=== PATIENT | male | born 1950 | race Caucasian/White ===

== ENCOUNTER 2019-01-25 12:52 | Outpatient (CLI) | payer MEDICARE, BC ==
--- NOTE | 2019-01-25 13:20 | RAD ---
EXAM: 4 views of the lumbosacral spine HISTORY: Low back pain with right lower cervical radiculopathy COMPARISON: None FINDINGS: 4 views of the lumbosacral spine shows normal height of the vertebral bodies and interverte bral discs without fracture. There is grade 1 anterolisthesis of L5 on S1. Intervertebral discs are narrowed and small to moderate osteophytes are seen throughout the lumbar spine. Moderate posterior f acet arthrosis is seen in the lower lumbosacral spine. There are questionable bilateral L5 pars defects. Alignment is unchanged with flexion and extension. The sacroiliac joints are unremarkable. Calcifications projecting over the right upper quadrant of th e abdomen may represent gallstones. IMPRESSION: Degenerative changes of the lumbar spine with unchanged alignment with bending
--- NOTE | 2019-01-25 14:09 | MRI ---
MR the lumbar spine without contrast INDICATION: Low back pain and right leg pain COMPARISON: Lumbar spinal radiographs dated January 25, 2019 TECHNIQUE: Multiplanar multisequence MR images were obtained of lumbar spine without IV contrast. FINDINGS: Bone marrow: Bone marrow signal intensity appears within normal limits. Distal spinal cord and conus: Normal. The conus seen to terminate at L1. Visualized retroperitoneum and paraspinal soft tissues: Normal. Vertebral levels: L5-S1: There are bilateral pars defects at L5. There is grade 1 anterolisthesis of L5 on S1. There is a broad-based pseudobulge with loss of disc space height inducing mild to moderate bilateral neural foraminal narrowing.. L4-5: There is a broad-based disc osteophyte complex with facet hypertrophy and loss of disc space he ight inducing mild bilateral neural foraminal narrowing, left greater than right. L3-4: There is a broad-based disc bulge with a superimposed caudad projecting left paracentral disc e xtrusion. The extrusion measures 1 cm in its greatest craniocaudad dimension. The extrusion is causing mild effacement of the left ventrolateral subarachnoid space but does cause moderate narrowin g of the left lateral recess with potential for impingement of the traversing left L4 nerve root. Broad-based bulge induces mild bilateral neural foraminal narrowing. L2-3: There is a broad-based bulge with facet hypertrophy inducing mild to moderate right and mild le ft neural foraminal narrowing. There is mild central canal narrowing. L1-L2: There is a broad-based bulge causing mild central canal narrowing with mild bilateral neural f oraminal narrowing T12-L1: No appreciable central canal or neuroforaminal narrowing. IMPRESSION: 1. Moderate to severe spondylosis of the lumbar spine. 2. Bilateral pars defects at L5 with grade 1 anterolisthesis. There is [id number] bilateral meg ral foraminal narrowing at L5-S1. 3. Left paracentral inferior projecting extrusion causing moderate narrowing of the left lateral rece ss with potential for impingement of the traversing left L4 nerve root. 4. Mild central canal narrowing at L2-3 and L1-L2 due to broad-based disc bulges. There is bilateral moderate right and mild left neural foraminal narrowing at L2-3. There is mild bilateral neural foraminal narrowing at L1-2.
== END 2019-01-25 12:53 | disposition home or self-care (01) ==
LOC: TBSIIMAG 12:52
PROVIDERS: ATTEND Physician Assistant Surgical
DX: M79.604 Pain in right leg (principal); M54.5 Low back pain; M25.561 Pain in right knee; M47.816 Spondylosis without myelopathy or radiculopathy, lumbar region; M43.16 Spondylolisthesis, lumbar region; M48.07 Spinal stenosis, lumbosacral region; M51.26 Other intervertebral disc displacement, lumbar region; M48.061 Spinal stenosis, lumbar region without neurogenic claudication; M51.9 Unspecified thoracic, thoracolumbar and lumbosacral intervertebral disc disorder
CPT/HCPCS: 72110; 72148

== ENCOUNTER 2019-02-22 12:21 | Outpatient (CLI) | payer MEDICARE, BC ==
--- NOTE | 2019-02-22 13:43 | CT ---
CT Lumbar Spine WO Con History: Lumbar radiculopathy. Low back pain Comparison: MRI lumbar spine January 25, 2019 Findings: Aortic contour is nonaneurysmal. No retroperitoneal periaortic adenopathy. Moderate diverticular disease sigmoid colon without active current inflammation. Level by level interrogation was performed on last month's MRI lumbar. Multilevel posterior disc osteophyte complexes with neural foraminal narrowing as described on the re cent MRI examination. Bilateral L5 pars interarticularis defects with erosion of the posterior disc along with 9 mm anterolisthesis. There is sclerosis on either side of the pars defect. There is no acute fracture of the lumbar spine. Spinous processes are intact. Mild narrowing of the SI joints with ankylosis of the right anterior SI joint. Impression: 1. Similar appearance of the advanced spondylosis lumbar spine from the MRI January 25, 2019. 2. Unchanged bilateral pars interarticularis defects at L5 with 9 mm anterolisthesis. 3. Advanced narrowing of the interspinous space from L3-L5 with cortical sclerosis and subcortical cy st formation.
== END 2019-02-22 12:22 | disposition home or self-care (01) ==
LOC: BICCT 12:21
PROVIDERS: ATTEND Surgery
DX: M47.26 Other spondylosis with radiculopathy, lumbar region (principal); M54.5 Low back pain; M25.559 Pain in unspecified hip; M43.16 Spondylolisthesis, lumbar region; G95.89 Other specified diseases of spinal cord
CPT/HCPCS: 72131

== ENCOUNTER 2019-02-28 10:05 | Outpatient (CLI) | payer MEDICARE, BC ==
--- NOTE | 2019-02-28 10:55 | RAD ---
TWO VIEWS RIGHT HIP: HISTORY: Arthralgia. COMPARISON: None. FINDINGS: There is evidence of osteonecrosis with collapse involving the superior anterior aspect of the right femoral head. There is severe loss of joint space height, and sclerosis. Visualized bony pelvis is unremarkable IMPRESSION: Osteonecrosis of the right femoral head. Orthopedic consultation is recommended. CODE T Transcribed Date/Time: 02/28/2019 11:01 AM
== END 2019-02-28 10:06 | disposition home or self-care (01) ==
LOC: RAD 10:05
PROVIDERS: ATTEND Family Medicine
DX: M25.551 Pain in right hip (principal); M87.851 Other osteonecrosis, right femur

== ENCOUNTER 2019-04-20 18:17 | Observation (INO) | payer MEDICARE, BC ==
--- NOTE | 2019-04-20 19:29 | PDOC.FPRHP ---
- History of Present Illness Chief Complaint: abdominal pain History of Present Illness: 68 y/o male with a pmhx of HTN, HLD, and OA right hip, presents to [facility] ER for abdominal pain in epigastric area that has been intermittent and worsening over the past 3-4 weeks. Pt states the pain worsened after he received his second steroid injection for his R hip OA at the beginning of March, after having one 3 weeks before that. He states the pain is 10/10 at its worse, and 4- 5 today. The pain went away after given morphine and a GI cocktail. Pain was worsened with meals. PT had episodes of nausea without vomiting yesterday. Denies black/tarry, or bloody stools. C/o consitpation, but has been having BM daily. Last BM yesterday. Pt denies CP, SOB, cough, palpitations, PND, orthopnea, ot LE swelling. ER course: given 325 ASA, nitro, morphine, GI cocktail, and protonix Transferred to [facility] from [facility] - Allergies/Adverse Reactions Allergies Allergy/AdvReac Type Severity Reaction Status Date / Time No Known Allergies Allergy Verified 04/20/19 22:09 - Home Medications Medication Instructions Recorded Confirmed Type Aspirin [Aspir-Low] 81 mg PO DAILY 04/20/19 04/20/19 History Atenolol [Tenormin] 25 mg PO DAILY 04/20/19 04/20/19 History Cyanocobalamin (Vitamin B-12) 5,000 mcg PO DAILY 04/20/19 04/20/19 History [Vitamin B12] Diflunisal 500 mg PO BID 04/20/19 04/20/19 History Magnesium Oxide [Magnesium] 250 mg PO DAILY 04/20/19 04/20/19 History Pravastatin Sodium [Pravachol] 40 mg PO HS 04/20/19 04/20/19 History Pregabalin 200 mg PO BID 04/20/19 04/20/19 History tiZANidine HCl [Tizanidine HCl] 4 mg PO HS 04/20/19 04/20/19 History Pantoprazole [Protonix] 40 mg PO DAILY 30 Days #30 tab 04/21/19 Rx - History PMHx: HTN, HLD, macular degeneration, OA R hip, Cholelithiasis PSHx: none FHx: father: heart problem Mother: Breast CA at age 45, Colon cacner in 80's, at age 92 Social: Denies any previous use or current use of ETOH, tobacco, or drugs. diet: nutrisystem diet with shakes and bars - Review of Systems General: reports: weight/appetite/sleep changes (lost weight since September through dieting.). denies: fever/chills Eyes: denies: vision changes ENT: denies: nasal congestion Respiratory: denies: cough, congestion, shortness of breath, exercise intolerance Cardiovascular: denies: chest pain, palpitation, edema, paroxysmal nocturnal dyspnea, orthopnea Gastrointestinal: reports: nausea, constipation, abdominal pain. denies: vomiting, diarrhea, GI bleeding Genitourinary: denies: incontinence Skin: denies: rashes, lesions Musculoskeletal: reports: pain (R hip, chronic). denies: swelling Neurological: denies: syncope, seizure - Vital signs BP: 132/75 HR: 60 RR: 13 Tmax: Pox: 99% on RA Wt: 95 kg - Physical Exam Constitutional: NAD, awake, alert and oriented, well developed HEENT: normocephalic and atraumatic, PERRLA, EOMI, conjunctiva clear, no scleral icterus, grossly normal vision, grossly normal hearing, normal nasal mucosa, MMM, oropharynx clear, good dention Neck: supple, FROM, trachea midline, no LAD, no JVD Chest: no-tender to palpation, no lesions Heart: RRR, normal S1/S2, no murmurs/rubs/gallops, pulses present, no edema Lungs: CTAB, no respiratory distress, good air movement, no rales/rhonchi, no wheezing, no retractions Abdomen: soft, non-tender, bowel sounds present, no masses/distention, no hernias Musculoskeletal: normal structure, normal tone, ROM grossly normal Neurological: no focal deficit, CN II-XII intact, normal sensation Skin: no rash/lesions, good turgor, capillary refill <2 seconds Heme/Lymphatic: no unusual bruising or bleeding, no purpura, no petechia Psychiatric: normal mood and affect, good judgment and insight, intact recent and remote memory FMR H&P: Results - Labs Result Diagrams: 04/21/19 04:35 04/21/19 04:35 Lab results: trop 0.035, 0.060 Lipase 29 Cr 1.17 Bun 26 - EKG Interpretation EKG: sinus bradycardia 57 bpm FMR H&P: A/P - Problem List (1) Elevated troponin Current Visit: Yes Status: Acute Code(s): R79.89 - OTHER SPECIFIED ABNORMAL FINDINGS OF BLOOD CHEMISTRY (2) Gastritis Current Visit: Yes Status: Acute Code(s): K29.70 - GASTRITIS, UNSPECIFIED, WITHOUT BLEEDING (3) Cholelithiasis Current Visit: Yes Status: Chronic Code(s): K80.20 - CALCULUS OF GALLBLADDER W/O CHOLECYSTITIS W/O OBSTRUCTION Qualifiers: Cholelithiasis location: gallbladder Cholecystitis presence: without cholecystitis (4) HTN (hypertension) Current Visit: Yes Status: Chronic Code(s): I10 - ESSENTIAL (PRIMARY) HYPERTENSION (5) HLD (hyperlipidemia) Current Visit: Yes Status: Chronic Code(s): E78.5 - HYPERLIPIDEMIA, UNSPECIFIED (6) Macular degeneration Current Visit: Yes Status: Chronic Code(s): H35.30 - UNSPECIFIED MACULAR DEGENERATION - Plan 68 y/o M admitted to tele observation for indeterminate troponin levels and acute gastritis 1. Indeterminate Troponin levels - Trop 0.035, 0.060. Trending. - EKG: HR 57, no ST elevations - Pt transferred from [place] ER after given nitro, morphine, ASA 325, and GI cocktail, and protonix. - Asset Protection Professional Dr. Donato, had a negative stress test 3 years ago. 2. Acute Gastritis - Started Protonix 40 mg BID - no dark or bloody stools - US abdomen pending 3. Hx of HTN - Continue home mediations - vitals Q4H 4. Hx of HLD - AM FLP - Continue home statin dose 5. Hx of Macular degeneration - pt receives injections every every 3 months. Vision stable 6. Osteoarthritis - R-hip pain, has been taking muscle relaxers and receiving steroid injections - Pt considering joint replacement Code status: Full code GI ppx: protonix dvt ppx: SCD's Dispo: stable, admitting to tele obs FMR H&P: Upper Level - Plan Date/Time: 04/20/191928 IAndres MD, have evaluated this patient and agree with findings/ plan as outlined by financial internship resident. Pertinent changes/additions are listed here. 1. Elevated Troponin - History of multiple negative stress tests with Dr. Mims - Will trend - Ordered labs for risk stratification - Stress test in AM - Low suspicion for ACS 2. Osteoarthritis - Follow up scheduled as outpatient - Pain control as needed - Will avoid NSAIDS if possible 3. Gastritis - Likely secondary to steroid use due to OA - Symptoms resolved with GI cocktail - PPI CODE STATUS: FULL CODE PCP: JORDAN Leon Disposition: Stable, will admit for Tele Obs and stress testing. Addendum - Attending - Attending Attestation Date/Time: 04/21/19 1030 I personally evaluated the patient and discussed the management with Dr. Carrillo/ Paula I agree with the History, Examination, Assessment and Plan documented above with any addition or exceptions noted below. Patient with relief s/p GI cocktail will evaluate for CAD with stress testing home pending results.
[2019-04-20] MEDS ORDERED: Calcium Carbonate 500 MG ChewTAB PO PRN (19:34)
[2019-04-20] MEDS ORDERED: Ondansetron ODT 4 MG TAB PO PRN (19:34)
[2019-04-20] MEDS ORDERED: Acetaminophen 325 MG TAB PO PRN (19:34)
--- NOTE | 2019-04-20 19:50 | ULT ---
EXAM: Right upper quadrant ultrasound PROVIDED CLINICAL HISTORY: None COMPARISON: None FINDINGS: Visualized portions of the pancreas appear normal. Liver demonstrates no mass or intrahepatic biliary ductal dilatation. Common duct is nondilated. Gallbladder demonstrates gallstones without wall thickening or pericholecy stic fluid. Right kidney demonstrates no hydronephrosis or mass. IMPRESSION: Cholelithiasis without evidence for acute findings related to the gallbladder.
[2019-04-20 23:06] LABS: Troponin I 0.029 ng/mL (< 0.028)
[2019-04-20] MEDS: Pantoprazole 40 MG GRANULES PACKET PO SCH (23:14)
[2019-04-21] MEDS ORDERED: Acetaminophen 500 MG TAB PO PRN (03:46)
[2019-04-21] MEDS ORDERED: tiZANidine HCl 4 MG TAB PO SCH ×3 (04:00→21:00)
[2019-04-21 04:47] LABS: #Eosinphils 0.1 thou/uL (0.0-0.7); #Lymphocytes 2.3 thou/uL (1.20-3.40); #Monocytes 0.6 thou/uL (0.11-0.59); #Neutrophils 3.6 thou/uL (1.40-6.50); %Basophils 0.7 % (0.0-1.0); %Eosinophils 2.1 % (0.0-10.0); %Monocytes 8.7 % (0.0-10.0); %Neutrophils 53.5 % (42.0-75.0); Hemoglobin 14.5 g/dL (14.0-18.0); Mean Corpuscular HGB CONC 32.7 g/dL (32.0-36.0); Mean Corpuscular Hemoglobin 31.3 pg (27.0-31.0); Mean Corpuscular Volume 95.9 fL (78.0-98.0); Mean Platelet Volume 8.3 fL (7.4-10.4); Platelet Count 204 thou/uL (130-400); RBC Distribution Width 13.8 % (11.5-14.5); Red Blood Cell (RBC) Count 4.64 mill/uL (4.70-6.10); White Blood Cell (WBC) Count 6.7 thou/uL (4.8-10.8)
--- NOTE | 2019-04-21 05:15 | PDOC.FM ---
- Subjective Subjective: Mr. Mane is feeling much better this morning. He states that his epigastric /chest pain completely resolved yesterday prior to arrival. He has no history of heart attack, heart surgery or stents. He sees Dr. Freire, normal stress test 3 years ago. - Objective MAR Reviewed: Yes Vital Signs & Weight: Vital Signs (12 hours) Temp Pulse Resp BP Pulse Ox 04/21/19 03:53 62 18 124/64 99 04/20/19 21:05 98.5 F 55 L 18 157/72 H 99 Weight Weight 95.663 kg Result Diagrams: 04/21/19 04:35 04/21/19 04:35 Phys Exam - Physical Examination Constitutional: NAD HEENT: PERRLA, moist MMs Neck: supple, full ROM Respiratory: no wheezing, no rales, no rhonchi, clear to auscultation bilateral Cardiovascular: RRR, no significant murmur, no rub Gastrointestinal: soft, non-tender Musculoskeletal: no edema, pulses present Neurological: non-focal, normal sensation, moves all 4 limbs Psychiatric: normal affect, A&O x 3 Skin: no rash, normal turgor Dx/Plan (1) Elevated troponin Code(s): R79.89 - OTHER SPECIFIED ABNORMAL FINDINGS OF BLOOD CHEMISTRY Status : Acute (2) Gastritis Code(s): K29.70 - GASTRITIS, UNSPECIFIED, WITHOUT BLEEDING Status: Acute (3) HLD (hyperlipidemia) Code(s): E78.5 - HYPERLIPIDEMIA, UNSPECIFIED Status: Chronic (4) HTN (hypertension) Code(s): I10 - ESSENTIAL (PRIMARY) HYPERTENSION Status: Chronic - Plan Plan: Indeterminate Troponin levels, improving. - Trop 0.030 > 0.060 > 0.029 > 0.030 - Clinical Business Analyst Dr. Donato, had a negative stress test 3 years ago. Acute Gastritis - Started Protonix 40 mg BID, will d/c with rx and recommend outpatient f/u. - no dark or bloody stools - US abdomen shows cholelithiasis w/o cholecystitis. Hx of HTN - Continue home mediations Hx of HLD - AM FLP pending - Continue home statin dose Hx of Macular degeneration - pt receives injections every every 3 months. Vision stable Osteoarthritis - R-hip pain, has been taking muscle relaxers and receiving steroid injections - Pt considering joint replacement Code status: Full code GI ppx: protonix dvt ppx: SCD's Dispo: stable, admitting to tele obs. Likely d/c home today with f/u with PCP and emergency medical services coordinator. Addendum - Attending - Attending Attestation Date/Time: 04/21/19 0099 I personally evaluated the patient and discussed the management with Dr. Malik I agree with the History, Examination, Assessment and Plan documented above with any addition or exceptions noted below.
[2019-04-21 05:19] LABS: ALT (SGPT) 13 U/L (8-55); AST (SGOT) 13 U/L (5-34); Albumin 3.7 g/dL (3.4-4.8); Alkaline Phosphatase 78 U/L (40-110); Anion Gap 12 mmol/L (10-20); BUN (Urea Nitrogen) 18 mg/dL (8.4-25.7); Bilirubin, Total 1.1 mg/dL (0.2-1.2); Calc. Creatinine Clearance 91 mL/min (70-130); Calcium 9.1 mg/dL (7.8-10.44); Carbon Dioxide 27 mmol/L (23-31); Cardiac Risk 2.3 (Less than 4.5); Chloride 105 mmol/L (98-107); Cholesterol 119 mg/dl (< 200 Desired); Estimated GFR-MDRD 69; Glucose 95 mg/dL (80-115); HDL Cholesterol 52 mg/dL (>60 Neg Risk); LDL Cholesterol, Calculated 58 mg/dL; Protein, Total 6.7 g/dL (5.8-8.1); Sodium 140 mmol/L (136-145); Triglycerides 45 mg/dL (Less than 150)
[2019-04-21] MEDS: Pantoprazole 40 MG GRANULES PACKET PO SCH (07:30)
[2019-04-21] MEDS ORDERED: DIFLUNISAL 500 MG PO SCH (08:00)
[2019-04-21] MEDS ORDERED: Aspirin 81 mg Enteric Coated Tablet PO SCH (09:00)
[2019-04-21] MEDS ORDERED: Cyanocobalamin (Vitamin B-12) 1,000 MCG TAB PO SCH (09:00)
[2019-04-21] MEDS ORDERED: Magnesium Oxide 250 MG TAB PO SCH (09:00)
[2019-04-21] MEDS ORDERED: Pregabalin 50 MG CAP PO SCH (09:00)
[2019-04-21] MEDS ORDERED: ADENOSINE 60 MG/20 ML VIAL ONE (09:27)
--- NOTE | 2019-04-21 11:45 | NM ---
MYOCARDIAL PERFUSION SCAN: The patient was given 10 mCi of technetium sestamibi for rest imaging and 28 mCi for stress imaging. Patient was stressed according to Adenosine protocol. INDICATION: ACS rule out. Chest pain. Left ventricle was imaged with SPECT imaging. Attenuation correction images obtained. FINDINGS: On nonattenuation images, there is decreased activity in the inferior wall on stress; however, the ac tivity appears normal on attenuation correction. No evidence of reversible ischemia. Wall motion appears normal. Ejection fraction recorded at over 60%. IMPRESSION: No evidence of reversible ischemia. POS: VICKY
[2019-04-21 12:17] VITALS: BP 136/60; TEMP 98.5
[2019-04-21] MEDS ORDERED: Pravastatin Sodium 40 MG TAB PO SCH (21:00)
--- NOTE | 2019-04-22 14:14 | DIS ---
DATE OF ADMISSION: 04/20/2019 DATE OF DISCHARGE: 04/21/2019 ADMITTING ATTENDING: Lico Toro MD DISCHARGE ATTENDING: Lico Toor MD CONSULTS: None. PROCEDURES: Nuclear stress test revealed no evidence of reversible ischemia. Ejection fraction estimated over 60%. PRIMARY DIAGNOSIS: Gastritis. SECONDARY DIAGNOSES: 1. Indeterminate troponin level. 2. History of hypertension. 3. History of hyperlipidemia. 4. History of macular degeneration. 5. Osteoarthritis. DISCHARGE MEDICATIONS: New medications; Protonix 40 mg daily. Resume home medications. Tizanidine, pregabalin, pravastatin, vitamin B12, atenolol, and aspirin. Discontinued medications, none. HISTORY OF PRESENT ILLNESS/HOSPITAL COURSE: Mr. Mane is a 68-year-old male , who presented with a chief complaint of chest pain that started in his epigastric area, that was also substernal in nature. He was found to have an elevated troponin level of 0.030, which was to 0.060 and then downtrended to 0.029. He has no cardiac history and regularly sees Dr. Freire, outpatient for Cardiology. However, even more than a year since his last stress test and with risk factors of hypertension and hyperlipidemia, decision was made to undergo a stress test, which was normal. The patient was discharged home. CONDITION: Stable. DISCHARGE INSTRUCTIONS: Location: Home. Diet: Heart healthy. Activity: Ad an. Followup: Follow up with primary care physician and performance improvement specialist after discharge. Job ID: [id number] MTDD
--- NOTE | 2019-04-27 15:18 | EKG ---
Test Reason : Blood Pressure : / mmHG Vent. Rate : 059 BPM Atrial Rate : 059 BPM P-R Int : 136 ms QRS Dur : 092 ms QT Int : 402 ms P-R-T Axes : 036 020 026 degrees QTc Int : 397 ms Sinus bradycardia Possible Left atrial enlargement Borderline ECG Confirmed by RUIZ GEORGE ([id number]), newspaper editor MARIA M ROMERO ([id number]) on 04/27/2019 3:18:36 PM Referred By: Confirmed By:RUIZ GEORGE
== END 2019-04-21 13:42 | disposition home or self-care (01) ==
LOC: ERS 18:17 → 2SW 19:17
PROVIDERS: ADMIT Family Medicine; ATTEND Family Medicine
DX: K29.00 Acute gastritis without bleeding (principal); R79.89 Other specified abnormal findings of blood chemistry; I10 Essential (primary) hypertension; E78.5 Hyperlipidemia, unspecified; M16.11 Unilateral primary osteoarthritis, right hip; H35.30 Unspecified macular degeneration; K80.20 Calculus of gallbladder without cholecystitis without obstruction; Z79.82 Long term (current) use of aspirin; Z79.899 Other long term (current) drug therapy
CPT/HCPCS: 76705; 78452; 80053; 80061; 82553; 84484 ×2; 85025; 93005; 93017; 99285; A9500; G0378 ×3; 36415; J0153

== ENCOUNTER 2020-12-30 09:44 | Outpatient (CLI) | payer MEDICARE, BC | END 2020-12-30 09:45 | disposition home or self-care (01) | LOC: BICULT 09:44 | PROVIDERS: ATTEND Internal Medicine Nephrology | DX: N18.30 Chronic kidney disease, stage 3 unspecified (principal) | CPT/HCPCS: 76770 ==

== ENCOUNTER 2021-07-13 09:24 | Outpatient (CLI) | payer MEDICARE, BC | END 2021-07-13 09:25 | disposition home or self-care (01) | LOC: TBSIIMAG 09:24 | PROVIDERS: ATTEND Urology | DX: C61 Malignant neoplasm of prostate (principal) | CPT/HCPCS: 72197; 82565 ==

== ENCOUNTER 2022-02-24 08:09 | Outpatient (CLI) | payer MEDICARE, BC ==
[2022-02-24 08:57] LABS: Bilirubin Neg (Negative); Blood, Urine Negative (Negative); Clarity Clear (Clear); Glucose, Urine (Dipstick) Normal (Negative); Ketone, Urine Negative (Negative); Leukocyte Negative (Negative); Nitrite Negative (Negative); Protein, Urine (Dipstick) Negative (Neg-Trace); Specific Gravity, Urine 1.015 (1.005-1.030); Urobilinogen Normal mg/dL (Less than 2); pH, Urine 6.5 (5.0-9.0)
[2022-02-24 09:23] LABS: Hemoglobin 16.1 g/dL (13.5-17.5); Mean Corpuscular HGB CONC 33.4 g/dL (32.0-36.0); Mean Corpuscular Hemoglobin 31.5 pg (27.0-33.0); Mean Corpuscular Volume 94.3 fl (81.2-95.1); Mean Platelet Volume 10.6 fl (7.4-10.4); Platelet Count 250 10x3/uL (150-450); RBC Distribution Width 14.3 % (11.5-14.5); Red Blood Cell (RBC) Count 5.11 10x6/uL (4.32-5.72); White Blood Cell (WBC) Count 7.9 10x3/uL (3.5-10.5)
[2022-02-24 09:41] LABS: INR-International Normal Ratio 0.9; PTT 26.8 sec (22.0-33.0)
[2022-02-24 09:52] LABS: Anion Gap 15 mmol/L (10-20); BUN (Urea Nitrogen) 14 mg/dL (8.4-25.7); Calc. Creatinine Clearance 0 mL/min (70-130); Calcium 8.9 mg/dL (7.8-10.44); Carbon Dioxide 26 mmol/L (23-31); Chloride 106 mmol/L (98-107); Estimated GFR 70; Glucose 114 mg/dL (80-115); Potassium 4.4 mmol/L (3.5-5.1); Sodium 143 mmol/L (136-145)
[2022-02-24 10:11] LABS: Bacteria/HPF Rare-Few HPF (None Seen); RBC/HPF 0-3 HPF (0-3); Squamous Epithelial 0-3 HPF (0-3); WBC/HPF 0-3 HPF (0-3)
== END 2022-02-24 08:10 | disposition home or self-care (01) ==
LOC: LABBT 08:09
PROVIDERS: ATTEND Urology
DX: Z01.818 Encounter for other preprocedural examination (principal); C61 Malignant neoplasm of prostate; N40.1 Benign prostatic hyperplasia with lower urinary tract symptoms; R35.0 Frequency of micturition
CPT/HCPCS: 80048; 81001; 85027; 85610; 85730; 87086; 93005; 93010

== ENCOUNTER 2022-03-04 05:46 | Day surgery (SDC) | payer MEDICARE, BC ==
[2022-03-03 11:41] VITALS: BMI 30.9
[2022-03-04] MEDS ORDERED: Oxymetazoline HCl 0.05% (30 ML BOT) ONE (07:10)
[2022-03-04] MEDS ORDERED: fentaNYL PF 100 MCG/2 ML SYRINGE ONE (08:27)
[2022-03-04] MEDS ORDERED: cefTRIAXone\\ROCEPHIN 1 GM VIAL ONE ×2 (08:46→08:58)
[2022-03-04] MEDS ORDERED: Sodium Chloride 0.9% 100 ML ONE (08:46)
[2022-03-04] MEDS ORDERED: Dexamethasone 20 MG/5 ML VIAL ONE (08:57)
[2022-03-04] MEDS ORDERED: Ondansetron PF 4 MG/2 ML Vial ONE (08:57)
== END 2022-03-04 10:24 | disposition home or self-care (01) ==
LOC: SDC 05:46
PROVIDERS: ATTEND Urology
PROC: 0VB03ZX Excision of Prostate, Percutaneous Approach, Diagnostic (ICD-10-PCS; principal; 2022-03-04)
DX: C61 Malignant neoplasm of prostate (principal); I10 Essential (primary) hypertension; E78.5 Hyperlipidemia, unspecified; Z79.82 Long term (current) use of aspirin; Z79.899 Other long term (current) drug therapy
CPT/HCPCS: G0416; G0416-26; J0696; J1100; J2405; J3490